=== PATIENT | female | born 1970 | race Caucasian/White ===

== ENCOUNTER 2021-05-01 06:35 | Emergency (ER) | payer BC ==
[2021-05-01 07:34] LABS: ANION GAP 13.4 mmol/L (5-15); CHLORIDE,CL 103 mmol/L (98-107); SODIUM,NA 144 mmol/L (136-145)
[2021-05-01] MEDS ORDERED: fentaNYL 100 MCG/2 ML SDV IVPUSH ONE (07:34)
[2021-05-01] MEDS ORDERED: HYDROmorphone 1 MG/ML Syringe IVPUSH ONE ×2 (08:15→09:46)
[2021-05-01] MEDS ORDERED: Iopamidol 612 MG/ML 100 ML Bottle IVPUSH ONE (08:27)
[2021-05-01] MEDS ORDERED: Ketorolac 30 MG/ML SDV IVPUSH ONE (09:46)
[2021-05-01] MEDS ORDERED: cefTRIAXone 1 GM Vial IVPUSH ONE (09:47)
[2021-05-01] MEDS ORDERED: Take Home: Acetaminophen/oxyCODONE 325-5 MG, 5 Tab Pack PO ONE (10:07)
== END 2021-05-01 10:30 | disposition home or self-care (01) ==
LOC: VM.ED 06:35
DX: R22.0 Localized swelling, mass and lump, head (principal); R68.84 Jaw pain; Z88.1 Allergy status to other antibiotic agents
CPT/HCPCS: 36415; 70491; 80048; 85025; 86140; 96374; 96375; 96376; 99284; 99284-25; A9270-GY; J0696; J1170; J1885; J3010; Q9967

== ENCOUNTER 2021-05-09 09:27 | Day surgery (SDC) | payer BC ==
[~2021-05-09 09:27] MED LIST: Lactated Ringers 1,000 ML IV SCH
[2021-05-09] MEDS ORDERED: fentaNYL 100 MCG/2 ML SDV ONE (10:02)
[2021-05-09] MEDS ORDERED: Propofol 200 MG/20 ML SDV ONE ×3 (10:02→11:02)
== END 2021-05-09 12:25 | disposition home or self-care (01) ==
LOC: VM.SDS 09:27
PROVIDERS: ATTEND Surgery
DX: Z12.11 Encounter for screening for malignant neoplasm of colon (principal); G43.909 Migraine, unspecified, not intractable, without status migrainosus; G62.9 Polyneuropathy, unspecified; G47.33 Obstructive sleep apnea (adult) (pediatric); F41.1 Generalized anxiety disorder; R45.1 Restlessness and agitation; M60.811 Other myositis, right shoulder; Z88.1 Allergy status to other antibiotic agents; Z79.899 Other long term (current) drug therapy; Z87.891 Personal history of nicotine dependence
CPT/HCPCS: 00812; J2704; J3010; J7120

== ENCOUNTER 2021-07-19 21:54 | Observation (INO) | payer BC ==
[2021-07-19] MEDS ORDERED: Sodium Chloride 0.9% 10 ML Syringe FLUSH PRN (22:03)
[2021-07-19] MEDS: Sodium Chloride 0.9% 1,000 ML IV SCH (22:30)
[2021-07-19 22:33] LABS: PTT,PARTIAL THROMBOPLSTIN TIME 22.5 SEC (20.5-30.9)
[2021-07-19] MEDS: Ondansetron 4 MG/2 ML SDV IVPUSH ONE (22:41)
[2021-07-19 22:47] LABS: ACETAMINOPHEN 0 ug/ml (10-30); CHLORIDE,CL 103 mmol/L (98-107); SODIUM,NA 141 mmol/L (136-145)
[2021-07-19 22:49] LABS: ANION GAP 15.9 mmol/L (5-15)
[2021-07-19] MEDS: NS with KCl 40mEq 1,000 ML IV SCH (23:36)
[2021-07-19 23:46] LABS: BARBITURATE SCREEN,URINE NEGATIVE (NEGATIVE)
[2021-07-19 23:47] LABS: BENZODIAZEPINES SCREEN,URINE NEGATIVE (NEGATIVE); BUPRENORPHINE SCREEN,URINE NEGATIVE (NEGATIVE); METHAMPHETAMINE SCREEN, URINE NEGATIVE (NEGATIVE); THC SCREEN,URINE 50 NG/ML NEGATIVE (NEGATIVE)
[2021-07-20] MEDS ORDERED: Lactated Ringers 1,000 ML IV ONE (00:36)
[2021-07-20] MEDS ORDERED: Sodium Chloride 0.9% 1,000 ML IV SCH (00:45)
[2021-07-20 04:14] LABS: ANION GAP 14.3 mmol/L (5-15); CHLORIDE,CL 113 mmol/L (98-107); SODIUM,NA 149 mmol/L (136-145)
[2021-07-20 07:30] LABS: CHLORIDE,CL 111 mmol/L (98-107); SODIUM,NA 147 mmol/L (136-145)
[2021-07-20] MEDS: Acetaminophen 325 MG Tab PO PRN (08:21)
[2021-07-20] MEDS: Ondansetron 4 MG/2 ML SDV IVPUSH ONE (08:22)
[2021-07-20 10:16] VITALS: BP 98/37; PULSE 108
== END 2021-07-20 12:30 | disposition home or self-care (01) ==
LOC: VM.ED 21:54 → VM.MS 07-20 04:30 → UNDOADMOB 07-20 04:30 → UNDODISOB 07-20 12:30
PROVIDERS: ADMIT Physician Assistant; ATTEND Physician Assistant
DX: T43.211A Poisoning by selective serotonin and norepinephrine reuptake inhibitors, accidental (unintentional), initial encounter (principal); T43.591A Poisoning by other antipsychotics and neuroleptics, accidental (unintentional), initial encounter; G43.909 Migraine, unspecified, not intractable, without status migrainosus; G62.9 Polyneuropathy, unspecified; F10.10 Alcohol abuse, uncomplicated; Z88.8 Allergy status to other drugs, medicaments and biological substances; Z79.899 Other long term (current) drug therapy
CPT/HCPCS: 36415; 80048; 80053; 80143; 80179; 80305-QW; 80307; 81003; 81025; 83735; 84100; 84443; 84484; 85025; 85610; 85730; 93005; 93010; 96361; 96374; 96376; 99285-25; A9270-GY; G0378; J2405; J3480; J7030

== ENCOUNTER 2022-11-20 09:43 | Day surgery (SDC) | payer BC ==
[2022-11-20] MEDS ORDERED: fentaNYL 100 MCG/2 ML SDV ONE (10:48)
[2022-11-20] MEDS ORDERED: Propofol 200 MG/20 ML SDV ONE (10:48)
== END 2022-11-20 12:21 | disposition home or self-care (01) ==
LOC: VM.SDS 09:43
PROVIDERS: ATTEND Surgery
DX: K29.50 Unspecified chronic gastritis without bleeding (principal); F90.9 Attention-deficit hyperactivity disorder, unspecified type; F43.10 Post-traumatic stress disorder, unspecified; F32.A Depression, unspecified; I10 Essential (primary) hypertension; F41.1 Generalized anxiety disorder; M19.90 Unspecified osteoarthritis, unspecified site; G43.909 Migraine, unspecified, not intractable, without status migrainosus; G47.33 Obstructive sleep apnea (adult) (pediatric); M47.816 Spondylosis without myelopathy or radiculopathy, lumbar region; R22.31 Localized swelling, mass and lump, right upper limb; G62.9 Polyneuropathy, unspecified; M79.18 Myalgia, other site; M25.531 Pain in right wrist; G89.29 Other chronic pain; G51.8 Other disorders of facial nerve; Z88.1 Allergy status to other antibiotic agents; Z88.2 Allergy status to sulfonamides; Z79.899 Other long term (current) drug therapy
CPT/HCPCS: 00731; J2704; J3010; J7120

== ENCOUNTER 2024-10-11 10:31 | Emergency (ER) | payer BC ==
[2024-10-11] MEDS ORDERED: Acetaminophen/HYDROcodone 325-5 MG Tab PO ONE (10:52)
[2024-10-11] MEDS: Acetaminophen/HYDROcodone 325-5 MG Tab PO ONE (11:01)
== END 2024-10-11 13:19 | disposition home or self-care (01) ==
LOC: VM.ED 10:31
DX: S82.832A Other fracture of upper and lower end of left fibula, initial encounter for closed fracture (principal); I10 Essential (primary) hypertension; E66.9 Obesity, unspecified; Z79.899 Other long term (current) drug therapy; Z88.2 Allergy status to sulfonamides; Z88.8 Allergy status to other drugs, medicaments and biological substances; Z88.1 Allergy status to other antibiotic agents; X58.XXXA Exposure to other specified factors, initial encounter; Z68.24 Body mass index [BMI] 24.0-24.9, adult
CPT/HCPCS: 29515; 73610-LT; 99283-25; A9270-GY

== ENCOUNTER 2024-12-27 14:57 | Emergency (ER) | payer BC ==
[2024-12-27] MEDS: Ketorolac 30 MG/ML SDV IM ONE (15:54)
== END 2024-12-27 16:47 | disposition home or self-care (01) ==
LOC: VM.ED 14:57
DX: M79.662 Pain in left lower leg (principal); M25.562 Pain in left knee; M79.672 Pain in left foot; I10 Essential (primary) hypertension; E66.9 Obesity, unspecified; Z79.899 Other long term (current) drug therapy; Z88.2 Allergy status to sulfonamides; Z88.1 Allergy status to other antibiotic agents; Z88.8 Allergy status to other drugs, medicaments and biological substances; Z68.23 Body mass index [BMI] 23.0-23.9, adult; W19.XXXA Unspecified fall, initial encounter
CPT/HCPCS: 96372; 99283; J1885